=== PATIENT | female | born 1985 | race Caucasian/White ===

== ENCOUNTER 2016-11-16 19:10 | Emergency (ER) | payer OTHER ==
[~2016-11-16] VITALS: Ht 154.9 cm; Wt 86.2 kg
[~2016-11-16 19:10] MED LIST: IBUPROFEN 600600 M1 PO; NORCO 5-325 TA1 EACH PO; PRENATAL VITAM1 EAC6 PO; ZOFRAN4 MG PO
[2016-11-16 19:24] LABS: URINE BILIRUBIN NEGATIVE (Negative); URINE BLOOD TRACE (Negative); URINE COLOR YELLOW; URINE GLUCOSE-RANDOM* NEGATIVE (Negative); URINE KETONES NEGATIVE (Negative); URINE NITRITE NEGATIVE (Negative); URINE PROTEIN (DIPSTICK) NEGATIVE (Negative); URINE SPECIFIC GRAVITY >= 1.030 (1.003-1.035); URINE UROBILINOGEN 0.2 E.U./dl (0.2-1.0)
[2016-11-16] MEDS ORDERED: CELEXA20 MG PO (19:28)
[2016-11-16 20:21] LABS: HEMATOCRIT 37.7 % (37.0-47.0); HEMOGLOBIN 13.1 gm/dL (12.0-15.0); MCH 30.3 pg (26.0-34.0); MCHC 34.9 % (28.0-37.0); MCV 86.8 fL (80.0-100.0); RBC 4.34 mil/uL (4.20-5.00); WBC 5.7 thou/uL (4.0-11.0)
[2016-11-16 20:32] LABS: CALCIUM 9.3 mg/dL (8.5-10.1); CREATININE 0.7 mg/dL (0.6-1.3); POTASSIUM 3.7 mmol/L (3.5-5.1)
[2016-11-16] MEDS ORDERED: FLEXERIL PO (21:18)
[2016-11-16] MEDS ORDERED: TORADOL 10 MG T10 MG PO (21:18)
[2016-11-16 21:25] VITALS: BP 116/68
== END 2016-11-16 21:27 | disposition home or self-care (01) ==
LOC: ER 19:10
PROVIDERS: Physician Assistant
DX: R10.9 Unspecified abdominal pain (principal); M79.1 Myalgia